=== PATIENT | male | born 2000 | race Caucasian/White ===

== ENCOUNTER 2021-06-24 00:39 | Emergency (ER) | payer BC, SELFPAY ==
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
[2021-06-24 00:42] VITALS: BP 140/96; PULSE 110; RESP 22; TEMP 36.8; O2SAT 99
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
[2021-06-24 02:27] VITALS: BP 136/74; PULSE 84; RESP 16; O2SAT 99
[2021-06-24] MEDS: LIDOCAINE HCL 1% LOCAL INJ 20 ML VIAL INFILTRATE (02:27)
== END 2021-06-24 02:32 | disposition home or self-care (01) ==
PROVIDERS: Emergency Provider Emergency Medicine
DX: S01.81XA Laceration without foreign body of other part of head, initial encounter (principal); S62.396A Other fracture of fifth metacarpal bone, right hand, initial encounter for closed fracture; Y04.2XXA Assault by strike against or bumped into by another person, initial encounter
CPT/HCPCS: 12011; 70450; 70486; 72125; 73080; 73130; 99284